=== PATIENT | male | born 1980 | race Hispanic/Latino ===

== ENCOUNTER 2021-10-04 18:33 | Emergency (ER) | payer OTHER ==
[~2021-10-04] VITALS: Ht 177.8 cm; Wt 136.1 kg
[2021-10-04] MEDS ORDERED: CEPHALEXIN 500 MG CAPSULE PO ONE (19:00)
[2021-10-04] MEDS ORDERED: ACETAMINOPHEN 500 MG TABLET PO ONE (19:00)
[2021-10-04] MEDS ORDERED: CEPH500B PO (19:35)
[2021-10-04 19:43] VITALS: BP 148/87
== END 2021-10-04 19:55 | disposition home or self-care (01) ==
LOC: EDH 18:33
DX: S41.112A Laceration without foreign body of left upper arm, initial encounter (principal); X58.XXXA Exposure to other specified factors, initial encounter; Y93.89 Activity, other specified; Y92.89 Other specified places as the place of occurrence of the external cause; Y99.8 Other external cause status
CPT/HCPCS: 12001; 73060

== ENCOUNTER 2025-02-20 11:23 | Emergency (ER) | payer BC ==
[~2025-02-20] VITALS: Ht 177.8 cm; Wt 152.0 kg
[~2025-02-20 11:23] MED LIST: CEPH500B PO
--- NOTE | 2025-02-20 11:42 | EKG ---
[facility] Test Date: 2025-02-20 Test Time: 11:15:36 Pat Name: WALT GUTIERREZ Department: ED Room: Gender: Corporate Communications Specialist: [facility] : 1980 Requested By: PERCY SHEARER Order Number: [id number] Reading MD: Sada Sanders Measurements Intervals [place] Rate: 106 P: 44 GA: 127 QRS: 128 QRSD: 91 T: 43 QT: 360 QTc: 479 Interpretive Statements Sinus tachycardia Right axis deviation No previous ECG available for comparison Electronically Signed On 02-21-2025 12:32:54 FISHERIES SPECIALIST by Sada Sanders Please click the below link to view image of tracing.
[2025-02-20] MEDS: 0.9%NACL 1000ML 1,000 ML IV ONE (12:00)
[2025-02-20 12:26] LABS: IMMATURE GRANULOCYTE ABSOLUTE 0.04 K/uL (0-1); NUCLEATED RED BLOOD CELLS 0.0 % (0.0-0.19); PLATELET COUNT (AUTO) 197 K/uL (130-400); RED BLOOD CELL COUNT(AUTO) 5.43 MIL/uL (4.50-6.20); RED CELL DISTRIBUTION WIDTH 15.3 % (11.0-15.5); WHITE BLOOD COUNT (AUTO) 7.8 K/uL (4.8-10.8)
[2025-02-20 12:47] LABS: ALCOHOL, BLOOD 34.0 mg/dL (0-10); ASPARTATE AMINOTRANSFERASE 12.0 U/L (10-37); CREATINE KINASE, TOTAL 41.0 U/L (21-232); CREATININE 0.7 mg/dL (0.5-1.3); GLOMERULAR FILTR. RATE CALC 118.0 mL/min (>90); GLUCOSE,RANDOM 121.0 mg/dL (70-105); SODIUM SERUM 137.0 mmol/L (136-145); TOTAL PROTEIN, SERUM 7.4 g/dL (6.0-8.3); UREA NITROGEN, BLOOD 7.0 mg/dL (7-18)
--- NOTE | 2025-02-20 13:30 | HMCIMG ---
EXAM: CT Abdomen and Pelvis Without IV Contrast CLINICAL HISTORY: Abdominal pain. TECHNIQUE: Axial computed tomography images of the abdomen and pelvis were obtained without intravenous contrast. CONTRAST: No IV contrast administered. COMPARISON: None provided. FINDINGS: LUNG BASES: Right pleural collection measuring up to 3.0 cm in maximal thickness with associated subpleural atelectasis of the right lower lobe. Parenchymal scarring and atelectatic bands in both lower lobes. LIVER: Enlarged, measuring approximately 22 cm in craniocaudal length. Diffuse low attenuation consistent with fatty infiltration (hepatic steatosis). No focal hepatic lesion identified. GALLBLADDER AND BILE DUCTS: Gallbladder within normal limits. No calculi, wall thickening, or biliary dilatation. PANCREAS: Normal in size and attenuation. No peripancreatic inflammation or collection. SPLEEN: Normal in size and attenuation. ADRENAL GLANDS: Normal bilaterally. KIDNEYS, URETERS, AND BLADDER: Normal renal size and attenuation. No hydronephrosis, hydroureter, or calculus. Urinary bladder unremarkable. STOMACH AND BOWEL: Mild thickneing of loops of small bowel with some fluid in the bilateral paracolic gutters suggesting mild small bowel enteritis. No obstruction or free intraluminal air. APPENDIX: Normal in caliber. No periappendiceal inflammation. PERITONEUM: Perihepatic and perisplenic fluid collections extending along paracolic gutters into the pelvis, consistent with ascites. LYMPH NODES: No lymphadenopathy. REPRODUCTIVE: Unremarkable as visualized. VASCULATURE: Inferior vena cava is dilated. No aneurysm or thrombus. BONES: No acute or destructive osseous abnormality. IMPRESSION: * Mild small bowel enteritis with fluid in the paracolic gutters. Otherwise no acute intra-abdominal pathology to explain abdominal pain. Imaging features indicate systemic venous congestion???manifested by ascites, diffuse abdominal wall edema, right pleural effusion with subpleural atelectasis, mild cardiomegaly, and a dilated inferior vena cava. * Hepatomegaly with diffuse hepatic steatosis. * Bilateral lower lobe parenchymal scarring and atelectatic bands. /[place]
--- NOTE | 2025-02-20 13:45 | NUR ---
REPORT RECIEVED FROM ABIMAEL IBRAHIM. PATIENT CARE ASSUMED AT THIS TIME.
[2025-02-20 14:27] LABS: APPEARANCE,URINE CLEAR (CLEAR); GLUCOSE, URINE (UA) NEGATIVE (NEGATIVE); LEUKOCYTE ESTERASE ,URINE NEGATIVE Leu/uL (NEGATIVE); NITRATE,URINE NEGATIVE (NEGATIVE); OCCULT BLOOD,URINE NEGATIVE (NEGATIVE)
[2025-02-20 14:28] LABS: ADD UA MICROSCOPIC NO
[2025-02-20 14:33] LABS: AMPHET/METH SCREEN,URINE NEGATIVE (NEGATIVE); BARBITURATE SCREEN, URINE NEGATIVE (NEGATIVE); CANNABINOID SCREEN,URINE NEGATIVE (NEGATIVE); COCAINE SCREEN,URINE POSITIVE (NEGATIVE)
--- NOTE | 2025-02-20 14:35 | ERN ---
General Chief Complaint: Abdominal Pain Stated Complaint: ABD PAIN Time Seen by MD: 11:27 Source: patient, family History of Present Illness Initial Comments Patient is a 44-year-old male coming in with multiple complaints. Patient states that he has been having abdominal discomfort for some time. He also states that he has been feeling generalized body weakness. Allergies: Coded Allergies: No Known Allergies (Unverified Allergy, Unknown, 10/04/21) Home Meds Active Scripts Cephalexin Monohydrate (Keflex) 500 Mg Cap, 500 MG PO TID for 7 Days, #21 CAP Prov:VICKIE DELEON 10/04/21 Past Medical History Past Medical History: Hypertension Medical History Other: Obesity Past Surgical History: None Family History Family History: Negative Social History Social History: Negative ROS Dictation CONSTITUTIONAL: No chills, no fever, no weakness, no diaphoresis, no malaise. HEAD/FACE: No signs of trauma. EENT: No eye pain, no blurred vision, no tearing, no double vision, no ear pain, no ear discharge, no nose pain, no nasal congestion, no throat pain, no throat swelling, no mouth pain. RESPIRATORY: No cough, no orthopnea, no SOB, no stridor, no wheezing. CARDIOVASCULAR: No chest pain, no edema, no palpitations, no syncope. GASTROINTESTINAL/ABDOMINAL: No abdominal pain, no constipation, no diarrhea, no nausea, no vomiting. GENITOURINARY: No abnormal discharge, no dysuria, no frequent urination, no hematuria. No complaints of pain in the genitals. MUSCULOSKELETAL: No back pain, no gout, no joint pain, no joint swelling, no muscle pain, no muscle stiffness, no neck pain. INTEGUMENTARY: No change in color, no change in hair/nails, no dryness, no lesion, no lumps, no rash. NEUROLOGICAL/PSYCH: No anxiety, not depressed, no emotional problem, no headache, no numbness, no pre-existing deficit, no history of seizures, no tremors, no weakness. HEMATOLOGIC/LYMPHATIC: Not anemic, no history of blood clots, no apparent bleeding, no bruising, glands not swollen. All Systems Negative, Except as Noted. Physical Exam Physical Exam Dictation VITAL SIGNS: Reviewed. GENERAL APPEARANCE: Alert, oriented x3, no acute distress, obese. HEAD AND FACE: Non-traumatic. EYES: PERRL, pink conjunctivas, eyelid no trauma, anterior chamber clear. EARS: Pinnas intact and no signs of trauma or erythema. Ear canals clear and no discharge. TMs no erythema. NOSE: No discharge, no bleeding. OROPHARYNX: Mouth normal, teeth no caries, tongue pink. Pharynx clear, no erythema. Tonsils no exudates, no abscesses noted. Mucous membrane moist. NECK: Supple, non-tender, no thyromegaly, no masses, no JVD, no bruits. BREAST: Deferred. CHEST: No tenderness, no crepitus, no paradoxical movement, no retractions. LUNGS: Clear, well-ventilated, symmetric, no rales, no wheezing, no rhonchi, no stridor, good breath sounds bilaterally. HEART: Regular rate, regular rhythm, no murmur, no gallops. VASCULAR: No peripheral edema. ABDOMEN: Soft, positive bowel sounds, nondistended, no guarding, nontender, no rebound, no masses no hepatomegaly, no splenomegaly, no Terry's sign, no hernias. RECTAL: Deferred. GENITAL: Deferred. NEUROLOGICAL: Normal speech, gross motor function intact, gross sensory function intact. MUSCULOSKELETAL: Neck nontender, full range of motion, back nontender, full range of motion. EXTREMITIES: Nontender, full range of motion. SKIN: Color pink, dry, no turgor, no rash, no lacerations, no abrasions, no contusions. LYMPHATICS: Deferred. Results Laboratory and Microbiology Lab and Micro Result Laboratory Tests Test 02/20/25 12:12 02/20/25 14:03 02/20/25 14:55 White Blood Count 7.8 K/uL (4.8-10.8) Red Blood Count 5.43 MIL/uL (4.50-6.20) Hemoglobin 17.2 g/dL (14.0-18.0) Hematocrit 53.8 % (42-54) Mean Corpuscular Volume 99.1 fL (79-99) H Mean Corpuscular Hemoglobin 31.7 pg (27.0-33.0) Mean Corpuscular Hemoglobin Concent 32.0 g/dL (32.0-36.0) Red Cell Distribution Width 15.3 % (11.0-15.5) Platelet Count 197 K/uL (130-400) Mean Platelet Volume 9.7 fL (7.5-10.5) Immature Granulocyte % (Auto) 0.5 % (0-1) Neutrophils (%) (Auto) 67.6 % (40.0-77.0) Lymphocytes (%) (Auto) 23.1 % (21.0-51.0) Monocytes (%) (Auto) 7.7 % (3.0-13.0) Eosinophils (%) (Auto) 0.5 % (0.0-8.0) Basophils (%) (Auto) 0.6 % (0.0-5.0) Neutrophils # (Auto) 5.3 K/uL (1.8-7.7) Lymphocytes # (Auto) 1.8 K/uL (1.0-4.8) Monocytes # (Auto) 0.6 K/uL (0.1-1.0) Eosinophils # (Auto) 0.04 K/uL (0.00-0.70) Basophils # (Auto) 0.05 K/uL (0.00-0.20) Absolute Immature Granulocyte (auto 0.04 K/uL (0-1) Nucleated Red Blood Cells 0.0 % (0.0-0.19) Sodium Level 137 mmol/L (136-145) Potassium Level 4.1 mmol/L (3.5-5.1) Chloride Level 96 mmol/L (101-111) L Carbon Dioxide Level 38 mmol/L (21-32) H Blood Urea Nitrogen 7 mg/dL (7-18) Creatinine 0.7 mg/dL (0.5-1.3) Glomerular Filtration Rate Calc 118 mL/min (>90) Random Glucose 121 mg/dL (70-105) H Total Calcium 8.8 mg/dL (8.5-10.1) Total Bilirubin 0.7 mg/dL (0.2-1.0) Aspartate Amino Transf (AST/SGOT) 12 U/L (10-37) Alanine Aminotransferase (ALT/SGPT) 18 U/L (12-78) Alkaline Phosphatase 50 U/L (50-136) Total Creatine Kinase 41 U/L (21-232) Troponin I High Sensitivity 20 ng/L (4-75) Total Protein 7.4 g/dL (6.0-8.3) Albumin 3.4 g/dL (3.5-5.0) L Lipase 17 U/L (16-77) Serum Alcohol 34 mg/dL (0-10) H Urine Color COLORLESS (YELLOW) Urine Appearance CLEAR (CLEAR) Urine pH 5.5 (5.0-8.0) Urine Specific [place] 1.002 (1.001-1.031) Urine Protein NEGATIVE mg/dL (NEGATIVE) Urine Glucose (UA) NEGATIVE mg/dL (NEGATIVE) Urine Ketones NEGATIVE mg/dL (NEGATIVE) Urine Occult Blood NEGATIVE (NEGATIVE) Urine Nitrate NEGATIVE (NEGATIVE) Urine Bilirubin NEGATIVE mg/dL (NEGATIVE) Urine Urobilinogen 0.2 mg/dL (0.2-1.0) Urine Leukocyte Esterase NEGATIVE Azra/uL Urine Opiates Screen NEGATIVE (NEGATIVE) Urine Barbiturates Screen NEGATIVE (NEGATIVE) Urine Phencyclidine Screen NEGATIVE (NEGATIVE) Urine Amphetamines Screen NEGATIVE (NEGATIVE) Urine Benzodiazepines Screen NEGATIVE (NEGATIVE) Urine Cocaine Screen POSITIVE (NEGATIVE) H Urine Marijuana (THC) Screen NEGATIVE (NEGATIVE) Ammonia < 10 umol/L (11-32) L Labs Reviewed?: Yes EKG/XRAY/US/CT/MRI CT Scan Comment [id number] [id number] IMAGING REPORT Signed PATIENT: WALT GUTIERREZ MR#: [id number] : 1980 SEX: M AGE: 44 LOCATION: [facility] ORDER [id number] STATUS: [facility] REPORT#: [id number] SERVICE 1132 REASON: ABD PAIN ORDERING PHYSICIAN: PERCY SHEARER MD PROCEDURE: ABD PEL WO - CT ABDOMEN/PELVIS W/O CONTRAST EXAM: CT Abdomen and Pelvis Without IV Contrast CLINICAL HISTORY: Abdominal pain. TECHNIQUE: Axial computed tomography images of the abdomen and pelvis were obtained without intravenous contrast. CONTRAST: No IV contrast administered. COMPARISON: None provided. FINDINGS: LUNG BASES: Right pleural collection measuring up to 3.0 cm in maximal thickness with associated subpleural atelectasis of the right lower lobe. Parenchymal scarring and atelectatic bands in both lower lobes. LIVER: Enlarged, measuring approximately 22 cm in craniocaudal length. Diffuse low attenuation consistent with fatty infiltration (hepatic steatosis). No focal hepatic lesion identified. GALLBLADDER AND BILE DUCTS: Gallbladder within normal limits. No calculi, wall thickening, or biliary dilatation. PANCREAS: Normal in size and attenuation. No peripancreatic inflammation or collection. SPLEEN: Normal in size and attenuation. ADRENAL GLANDS: Normal bilaterally. KIDNEYS, URETERS, AND BLADDER: Normal renal size and attenuation. No hydronephrosis, hydroureter, or calculus. Urinary bladder unremarkable. STOMACH AND BOWEL: Mild thickneing of loops of small bowel with some fluid in the bilateral paracolic gutters suggesting mild small bowel enteritis. No obstruction or free intraluminal air. APPENDIX: Normal in caliber. No periappendiceal inflammation. PERITONEUM: Perihepatic and perisplenic fluid collections extending along paracolic gutters into the pelvis, consistent with ascites. LYMPH NODES: No lymphadenopathy. REPRODUCTIVE: Unremarkable as visualized. VASCULATURE: Inferior vena cava is dilated. No aneurysm or thrombus. BONES: No acute or destructive osseous abnormality. IMPRESSION: * Mild small bowel enteritis with fluid in the paracolic gutters. Otherwise no acute intra-abdominal pathology to explain abdominal pain. Imaging features indicate systemic venous congestion???manifested by ascites, diffuse abdominal wall edema, right pleural effusion with subpleural atelectasis, mild cardiomegaly, and a dilated inferior vena cava. * Hepatomegaly with diffuse hepatic steatosis. * Bilateral lower lobe parenchymal scarring and atelectatic bands. /[place] DICTATED BY: BROOKLYNN ZENG MD DATE: 02/20/251429 ELECTRONICALLY SIGNED BY: BROOKLYNN ZENG MD DATE: 02/20/25 143 [facility] MDM: Differential diagnosis: Cocaine abuse, alcohol abuse, history of liver cirrhosis, Rationale: Tests considered and ordered secondary to shared decision making include: Previous outside records reviewed: Old ER visits. Risk of complication and/or morbidity or mortality of patient management: None Medications-Per medication reconciliation Need for hospitalization: Patient does not meet criteria for hospitalization. Need for emergency major/minor surgery: No Patient is a 44-year-old gentleman coming in complaining of abdominal discomfort. Laboratory workup did disclose cocaine and alcohol. Patient does state he has a history of alcohol abuse in his trying to get better. Patient received GI cocktail and states his symptoms have improved. Patient will be discharged in stable condition. I did advised him appropriate follow up with PCP for long-term management. I also advised him abstaining from drug abuse as this would hinder his health more. ED Course Orders Procedure Category Date Status Time Cbc With Differential LAB 02/20/25 Complete 11:32 Comprehensive LAB 02/20/25 Complete Metabolic Panel 11: Troponin I High LAB 02/20/25 Complete Sensitivity 11:32 Urinalysis Profile LAB 02/20/25 Complete 11:32 12 Lead Ekg Tracing- EKG 02/20/25 Complete Technical 11:32 0.9%Nacl 1000ml (Ns PHA 02/20/25 Complete 1000ml) 12:00 Ondansetron 4mg Inj PHA 02/20/25 Complete (Zofran 4mg Inj) 12:00 Pantoprazole 40mg Inj PHA 02/20/25 Complete (Protonix 40mg Inj 12:00 Creatine Kinase, Total LAB 02/20/25 Complete 11:32 Ct Abdomen/Pelvis W/O CT 02/20/25 Resulted Contrast 11:32 Lipase LAB 02/20/25 Complete 11:32 Drug Screen Urine LAB 02/20/25 Complete 11:32 Alcohol, Blood LAB 02/20/25 Complete 11:32 Lidocaine Hcl 2% PHA 02/20/25 Complete Viscous (Lidocaine Hcl 15:00 Mag/Alum/Simeth 30ml PHA 02/20/25 Complete (Maalox Plus 30ml) 15:00 Ammonia LAB 02/20/25 Complete 14:41 Current Medications Medications (Trade) Dose Ordered Sig/Elder Route PRN Reason Start Time Stop Time Status Last Admin Dose Admin Al Hydroxide/Mg Hydroxide (MAALox PLUS 30ML) 30 ml ONCE ONCE PO 02/20/25 15:00 02/20/25 15:01 DC 02/20/25 14:50 Lidocaine HCl (Lidocaine HCl 2% Viscous) 10 ml ONCE ONCE PO 02/20/25 15:00 02/20/25 15:01 DC 02/20/25 14:51 Ondansetron HCl (zoFRAN 4MG INJ) 4 mg ONCE ONCE IVP 02/20/25 12:00 02/20/25 12:01 DC 02/20/25 14:04 Pantoprazole Sodium (PROTonix 40MG INJ) 40 mg ONCE ONCE IVP 02/20/25 12:00 02/20/25 12:01 DC 02/20/25 14:04 Sodium Chloride 1,000 ml @ 0 mls/hr ONCE ONCE IV 02/20/25 12:00 02/20/25 12:01 DC 02/20/25 12:00 Vital Signs Date Time Temp Pulse Resp B/P (MAP) Pulse Ox O2 Delivery O2 Flow Rate FiO2 02/20/25 13:45 98.1 106 21 146/101 97 Room Air* 0 21 02/20/25 11:26 97.3 106 20 146/101 97 Room Air 0 DX & DISP Disposition: Discharge Departure Impression: Primary Impression: Cocaine abuse Additional Impressions: Alcohol abuse, Complication of liver disease Condition: Stable Additional Instructions: FOLLOW-UP WITH PRIMARY CARE PROVIDER IN 1 TO 2 DAYS. TAKE MEDICATIONS DIRECTED HERE IN THE EMERGENCY ROOM. OKAY TO CONTINUE HOME MEDICATIONS UNLESS OTHERWISE DISCUSSED DURING YOUR VISIT IN THE EMERGENCY ROOM TODAY. RETURN TO YOUR NEAREST EMERGENCY ROOM IF SYMPTOMS WORSEN OR IF THERE IS NO IMPROVEMENT. CALL 911 IF YOU NEED IMMEDIATE ASSISTANCE. TAKE TYLENOL FEAJ-GOH-PLIEPBG NEEDED AND IF NO CONTRAINDICATIONS ARE PRESENT. INCREASE ORAL HYDRATION. A WOUND CULTURE OR URINE CULTURE WAS ORDERED HERE IN THE EMERGENCY ROOM DEPARTMENT PLEASE FOLLOW-UP WITH PRIMARY CARE PROVIDER AND ADVISE THEM TO GET REPORTS FROM OUR FACILITY. IF YOU HAD ANY DELMA WRAP/SPLINTS THAT WERE APPLIED HERE, PLEASE DO NOT REMOVE THEM UNTIL YOU SEE YOUR PRIMARY CARE OR SPECIALTY. Referrals: Referrals: SELF,REFERRAL (PCP) SEBASTIAN MITCHELL MD Time of Disposition: 15:21 PERCY SHEARER MD Feb 20, 2025 14:35
[2025-02-20] MEDS: MAG/ALUM/SIMETH 30 ML UDCUP PO ONE (14:50)
[2025-02-20] MEDS: LIDOCAINE HCL 2% VISCOUS 15 ML UDCUP PO ONE (14:51)
--- NOTE | 2025-02-20 16:23 | EKG ---
[facility] Test Date: 2025-02-20 Test Time: 15:46:20 Pat Name: WALT GUTIERREZ Department: ED Room: Gender: M Financial Services Assistant: [id number] : 1980 Requested By: PERCY SHEARER Order Number: [id number] Reading MD: Sada Sanders Measurements Intervals [place] Rate: 114 P: 56 MI: 132 QRS: 151 QRSD: 90 T: 21 QT: 348 QTc: 479 Interpretive Statements Sinus tachycardia Left atrial enlargement Consider anterior infarct Compared to ECG 02/20/2025 11:15:36 Atrial abnormality now present Myocardial infarct finding now present Right-axis deviation no longer present Electronically Signed On 02-21-2025 12:29:20 BRUSHER TENDER by Sada Sanders Please click the below link to view image of tracing.
[2025-02-20 16:24] VITALS: BP 150/101; PULSE 115; RESP 17; TEMP 98.1; O2SAT 95
== END 2025-02-20 16:39 | disposition home or self-care (01) ==
LOC: EDH 11:23
DX: F14.10 Cocaine abuse, uncomplicated (principal); F10.10 Alcohol abuse, uncomplicated; K76.89 Other specified diseases of liver; E66.9 Obesity, unspecified; I10 Essential (primary) hypertension; Z79.899 Other long term (current) drug therapy; Y90.9 Presence of alcohol in blood, level not specified
CPT/HCPCS: 99284; 74176; 96374; 96361; 96375; 82550; 84484; 80053; 80305; 82140; 83690; 85025; 36415; 93005 ×2; 81003; J7030; J2405; J2470